=== PATIENT | female | born 1970 | race Caucasian/White ===

== ENCOUNTER → 2020-03-14 | Outpatient (CLI) | payer OTHER ==
[~2020-03-14] MED LIST: ACETAMINOPHEN-O1 TAB PO; ANTIVERT/2525 M1 PO; CYCLOBENZAPRINE10 MG PO; LEVAQUIN750 M1 PO; NEURONTIN300 MG PO; OMNICEF300 MG PO; ZOFRAN ODT4 MG SL
== END | disposition home or self-care (01) ==
LOC: COVID19 05:36
PROVIDERS: ATTEND Family Medicine
DX: Z20.828 Contact with and (suspected) exposure to other viral communicable diseases (principal)